=== PATIENT | male | born 1960 | race Caucasian/White ===

== ENCOUNTER → 2018-07-21 | Outpatient (CLI) | payer OTHER ==
[~2018-07-21] VITALS: Ht 182.9 cm; Wt 83.9 kg
[~2018-07-21] MED LIST: LISINOPRIL10 MG PO; METOPROLOL SUCC50 MG PO
--- NOTE | 2018-07-21 13:21 | EKG ---
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[place] : 1960 Requested By: Kirstin Mtz Order Number: [id number] MD: Jcarlos Mart Measurements Intervals [place] Rate: 81 P: [place]: QRS: 54 QRSD: 89 T: 34 QT: 378 QTc: 439 Interpretive Statements Atrial fibrillation RSR' in V1 or V2, probably normal variant Borderline ST elevation, lateral leads No previous ECG available for comparison Electronically Signed On 07-21-2018 13:21:24 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
== END | disposition home or self-care (01) ==
LOC: GI 06:56
DX: Z12.11 Encounter for screening for malignant neoplasm of colon (principal); K57.30 Diverticulosis of large intestine without perforation or abscess without bleeding; I10 Essential (primary) hypertension; Z85.820 Personal history of malignant melanoma of skin; Z98.890 Other specified postprocedural states; Z79.899 Other long term (current) drug therapy
CPT/HCPCS: 62110; 62900

== ENCOUNTER → 2018-09-26 | Outpatient (CLI) | payer OTHER ==
[~2018-09-26] VITALS: Ht 177.8 cm; Wt 87.1 kg
[~2018-09-26] MED LIST changes: +FLECAINIDE ACET50 M1 PO; +XARELTO20 MG PO
[2018-09-26 08:06] LABS: ABSOLUTE NEUTROPHILS 4.5 thou/uL (1.4-8.2); BASOPHILS 0.8 % (0.0-2.0); EOSINOPHILS 1.6 % (0.0-3.0); HEMATOCRIT 44.8 % (42.0-52.0); LYMPHOCYTES 30.4 % (24.0-44.0); MCH 30.5 pg (26.0-34.0); MCHC 33.5 g/dL (28.0-37.0); MONOCYTES 6.7 % (1.0-8.0); PLATELET COUNT 163 thou/uL (150-400); POLYS 60.5 % (36.0-66.0); RBC 4.92 mil/uL (4.50-6.00); RDW 13.5 % (10.5-14.5); WBC 7.4 thou/uL (4.0-11.0)
[2018-09-26 08:10] LABS: CALCIUM 8.9 mg/dL (8.5-10.1); CREATININE 1.2 mg/dL (0.7-1.3); POTASSIUM 3.8 mmol/L (3.5-5.1)
[2018-09-26 08:14] VITALS: BP 145/70
[2018-09-26 08:16] LABS: ALBUMIN 3.8 g/dL (3.4-5.0); TOTAL BILIRUBIN 0.5 mg/dL (<0.1-1.0); TOTAL PROTEIN 7.1 g/dL (6.4-8.2)
[2018-09-26 08:17] LABS: APTT 31.6 Seconds (24.5-32.8); INR 1.2; PROTIME 12.1 Seconds (9.3-11.4)
== END | disposition home or self-care (01) ==
LOC: CATH 07:14
PROVIDERS: Internal Medicine Cardiovascular Disease
DX: I48.91 Unspecified atrial fibrillation (principal); I10 Essential (primary) hypertension; E78.5 Hyperlipidemia, unspecified; Z82.49 Family history of ischemic heart disease and other diseases of the circulatory system; Z98.890 Other specified postprocedural states; Z79.899 Other long term (current) drug therapy; Z79.01 Long term (current) use of anticoagulants
CPT/HCPCS: 62110; 62900

== ENCOUNTER → 2018-10-22 | Outpatient (CLI) | payer OTHER ==
[2018-10-22 10:29] LABS: HEMATOCRIT 45.5 % (42.0-52.0); HEMOGLOBIN 15.7 gm/dL (14.0-18.0); MCH 31.3 pg (26.0-34.0); MCHC 34.5 g/dL (28.0-37.0); MCV 90.5 fL (80.0-100.0); RBC 5.03 mil/uL (4.50-6.00); RDW 13.2 % (10.5-14.5); WBC 6.6 thou/uL (4.0-11.0)
[2018-10-22 10:50] LABS: INR 1.1
[2018-10-22 10:53] LABS: CALCIUM 9.4 mg/dL (8.5-10.1); CREATININE 1.1 mg/dL (0.7-1.3); POTASSIUM 4.2 mmol/L (3.5-5.1)
[2018-10-22 10:59] LABS: ALBUMIN 4.2 g/dL (3.4-5.0); TOTAL BILIRUBIN 0.7 mg/dL (<0.1-1.0)
--- NOTE | 2018-10-23 09:15 | EKG ---
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 : 1960 Requested By: Jcarlos Mart Order Number: [id number] MD: Tono Land Measurements Intervals [place] Rate: 55 P: 69 [place]: 186 QRS: 67 QRSD: 98 T: 58 QT: 449 QTc: 430 Interpretive Statements Sinus rhythm Abnormal R-wave progression, early transition Compared to ECG 07/21/2018 08:59:38 Atrial fibrillation no longer present Electronically Signed On 10-23-2018 9:15:33 CDT by Tono Land [email or web address] ��������������������������������������������� <ELECTRONICALLY SIGNED> ���������������������������������������� By: Tono Land MD, [facility] ��������������������������������������������� 10/23/18 0915 1025 1025 Tono Land MD, [facility] /EPI
== END | disposition home or self-care (01) ==
LOC: CATH 09:59
PROVIDERS: Internal Medicine Cardiovascular Disease
DX: I48.91 Unspecified atrial fibrillation (principal); Z53.8 Procedure and treatment not carried out for other reasons; Z79.899 Other long term (current) drug therapy; Z79.01 Long term (current) use of anticoagulants

== ENCOUNTER 2018-12-20 19:23 | Emergency (ER) | payer OTHER ==
[~2018-12-20] VITALS: Ht 180.3 cm; Wt 81.7 kg
[2018-12-20 19:57] LABS: ABSOLUTE NEUTROPHILS 4.8 thou/uL (1.4-8.2); BASOPHILS 0.8 % (0.0-2.0); EOSINOPHILS 1.4 % (0.0-3.0); HEMATOCRIT 44.3 % (42.0-52.0); HEMOGLOBIN 15.3 gm/dL (14.0-18.0); LYMPHOCYTES 15.5 % (24.0-44.0); MCH 30.9 pg (26.0-34.0); MCHC 34.6 g/dL (28.0-37.0); MCV 89.4 fL (80.0-100.0); MONOCYTES 8.5 % (1.0-8.0); PLATELET COUNT 147 thou/uL (150-400); POLYS 73.8 % (36.0-66.0); RBC 4.96 mil/uL (4.50-6.00); RDW 13.3 % (10.5-14.5); WBC 6.5 thou/uL (4.0-11.0)
[2018-12-20 20:03] LABS: ANION GAP 10 mmol/L (7-16); BUN 18 mg/dL (7-18); CHLORIDE 101 mmol/L (98-107); CO2 27 mmol/L (21-32); CREATININE 1.3 mg/dL (0.7-1.3); GLUCOSE 134 mg/dL (74-106); POTASSIUM 3.8 mmol/L (3.5-5.1); SODIUM 138 mmol/L (136-145)
[2018-12-20 20:11] LABS: TROPONIN-I <0.06 ng/mL (<0.06)
[2018-12-20 20:28] LABS: URINE BILIRUBIN NEGATIVE (Negative); URINE BLOOD NEGATIVE (Negative); URINE CLARITY CLEAR; URINE COLOR YELLOW; URINE GLUCOSE-RANDOM* NEGATIVE (Negative); URINE KETONES NEGATIVE (Negative); URINE LEUKOCYTES-REFLEX NEGATIVE (Negative); URINE NITRITE-REFLEX NEGATIVE (Negative); URINE PROTEIN (DIPSTICK) TRACE (Negative); URINE SPECIFIC GRAVITY >= 1.030 (1.005-1.035); URINE UROBILINOGEN 0.2 E.U./dl (0.2-1.0)
[2018-12-20 22:26] VITALS: BP 110/64
--- NOTE | 2018-12-21 09:28 | EKG ---
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 : 1960 Requested By: Kathia Brown Order Number: [id number] MD: Tono Land Measurements Intervals [place] Rate: 61 P: 68 [place]: 185 QRS: 69 QRSD: 84 T: 63 QT: 413 QTc: 416 Interpretive Statements Sinus rhythm Right ventricular conduction delay Compared to ECG 10/22/2018 10:25:58 No significant change was found Electronically Signed On 12-21-2018 9:28:34 CDT by Tono Land [email or web address] ��������������������������������������������� <ELECTRONICALLY SIGNED> ���������������������������������������� By: Tono Land MD, [facility] ��������������������������������������������� 12/21/18 0928 193 30 Tono Land MD, [facility] /EPI
== END 2018-12-20 23:11 | disposition home or self-care (01) ==
LOC: ER 19:23
PROVIDERS: Emergency Medicine
DX: R55 Syncope and collapse (principal); R11.10 Vomiting, unspecified; R19.7 Diarrhea, unspecified; I48.91 Unspecified atrial fibrillation; I10 Essential (primary) hypertension; E78.5 Hyperlipidemia, unspecified

== ENCOUNTER → 2020-03-24 | Outpatient (CLI) | payer OTHER ==
[2020-03-24 10:07] LABS: URINE BILIRUBIN NEGATIVE (Negative); URINE BLOOD NEGATIVE (Negative); URINE CLARITY CLEAR; URINE COLOR YELLOW; URINE GLUCOSE-RANDOM* NEGATIVE (Negative); URINE KETONES NEGATIVE (Negative); URINE LEUKOCYTES-REFLEX NEGATIVE (Negative); URINE NITRITE-REFLEX NEGATIVE (Negative); URINE PROTEIN (DIPSTICK) NEGATIVE (Negative); URINE UROBILINOGEN 0.2 E.U./dl (0.2-1.0)
[2020-03-24 10:10] LABS: ABSOLUTE NEUTROPHILS 3.8 thou/uL (1.4-8.2); BASOPHILS 0.9 % (0.0-2.0); HEMATOCRIT 45.8 % (42.0-52.0); HEMOGLOBIN 15.6 gm/dL (14.0-18.0); LYMPHOCYTES 36.7 % (24.0-44.0); MCH 30.9 pg (26.0-34.0); MCHC 33.9 g/dL (28.0-37.0); MONOCYTES 7.5 % (1.0-8.0); PLATELET COUNT 180 thou/uL (150-400); POLYS 52.9 % (36.0-66.0); RBC 5.03 mil/uL (4.50-6.00); RDW 13.4 % (10.5-14.5); WBC 7.1 thou/uL (4.0-11.0)
[2020-03-24 10:37] LABS: ALBUMIN 4.1 g/dL (3.4-5.0); ANION GAP 5 mmol/L (7-16); BUN 13 mg/dL (7-18); CHLORIDE 102 mmol/L (98-107); CHOLESTEROL 199 mg/dL (<200); CO2 33 mmol/L (21-32); CREATININE 1.1 mg/dL (0.7-1.3); GLUCOSE 90 mg/dL (74-106); HDL CHOLESTEROL 64 mg/dL (>40); LDL CHOLESTEROL 119 mg/dL (<100); POTASSIUM 4.6 mmol/L (3.5-5.1); SGOT 22 U/L (15-37); SGPT 31 U/L (30-65); SODIUM 140 mmol/L (136-145); TC:HDL 3.1 Ratio (Not establshd); TOTAL BILIRUBIN 0.5 mg/dL (0.2-1.0); TOTAL PROTEIN 7.3 g/dL (6.4-8.2); TRIGLYCERIDE 82 mg/dL (<150); VLDL 16 mg/dL (<40)
== END ==
LOC: LABMALL 09:30
PROVIDERS: ATTEND Family Medicine
DX: Z00.00 Encounter for general adult medical examination without abnormal findings (principal)

== ENCOUNTER → 2020-05-17 | Outpatient (CLI) | payer OTHER | LOC: CAT 13:15 | PROVIDERS: ATTEND Otolaryngology Plastic Surgery within the Head & Neck | DX: J31.0 Chronic rhinitis (principal); J32.9 Chronic sinusitis, unspecified ==

== ENCOUNTER → 2021-05-24 | Outpatient (CLI) | payer OTHER | LOC: SJCVCIMAG 07:15 | PROVIDERS: ATTEND Internal Medicine Cardiovascular Disease | DX: I34.0 Nonrheumatic mitral (valve) insufficiency (principal); Z86.79 Personal history of other diseases of the circulatory system ==

== ENCOUNTER → 2021-07-11 | Outpatient (CLI) | payer OTHER ==
[2021-07-11 12:31] LABS: ABSOLUTE NEUTROPHILS 4.2 thou/uL (1.4-8.2); BASOPHILS 0.8 % (0.0-2.0); EOSINOPHILS 2.8 % (0.0-3.0); LYMPHOCYTES 30.4 % (24.0-44.0); MCH 30.7 pg (26.0-34.0); MCHC 33.3 g/dL (28.0-37.0); MCV 92.4 fL (80.0-100.0); MONOCYTES 7.7 % (1.0-8.0); PLATELET COUNT 187 thou/uL (150-400); POLYS 58.3 % (36.0-66.0); RBC 4.87 mil/uL (4.50-6.00); RDW 13.3 % (10.5-14.5); URINE BILIRUBIN NEGATIVE (Negative); URINE BLOOD NEGATIVE (Negative); URINE CLARITY CLEAR; URINE COLOR YELLOW; URINE GLUCOSE-RANDOM* NEGATIVE (Negative); URINE KETONES NEGATIVE (Negative); URINE LEUKOCYTES-REFLEX NEGATIVE (Negative); URINE NITRITE-REFLEX NEGATIVE (Negative); URINE PROTEIN (DIPSTICK) NEGATIVE (Negative); URINE UROBILINOGEN 0.2 E.U./dl (0.2-1.0); WBC 7.1 thou/uL (4.0-11.0)
[2021-07-11 13:06] LABS: ALBUMIN 3.9 g/dL (3.4-5.0); ANION GAP 6 mmol/L (7-16); BUN 17 mg/dL (7-18); CALCIUM 9.1 mg/dL (8.5-10.1); CHLORIDE 101 mmol/L (98-107); CHOLESTEROL 196 mg/dL (<200); CO2 30 mmol/L (21-32); CREATININE 1.2 mg/dL (0.7-1.3); GLUCOSE 98 mg/dL (74-106); HDL CHOLESTEROL 67 mg/dL (>40); LDL CHOLESTEROL 111 mg/dL (<100); POTASSIUM 4.5 mmol/L (3.5-5.1); SGOT 25 U/L (15-37); SGPT 34 U/L (30-65); SODIUM 137 mmol/L (136-145); TC:HDL 2.9 Ratio (Not establshd); TOTAL BILIRUBIN 0.5 mg/dL (0.2-1.0); TOTAL PROTEIN 7.2 g/dL (6.4-8.2); TRIGLYCERIDE 94 mg/dL (<150); VLDL 19 mg/dL (<40)
== END ==
LOC: LAB 11:54
PROVIDERS: ATTEND Family Medicine
DX: Z12.5 Encounter for screening for malignant neoplasm of prostate (principal); Z00.00 Encounter for general adult medical examination without abnormal findings; I10 Essential (primary) hypertension; I48.91 Unspecified atrial fibrillation